=== PATIENT | male | born 1935 | race Caucasian/White ===

== ENCOUNTER → 2016-10-28 | Outpatient (CLI) | payer MEDICARE, SELFPAY ==
[~2016-10-28] MED LIST: CIPRO500 MG PO; COUMADIN 2.5MG2.5 MG PO; COUMADIN 5MG TAB5 MG PO; FLAGYL500 MG PO; GLUCOPHAGE 500500 MG PO; LOSARTAN POTASS25 MG PO; NITROSTAT 0.40.4 MG SL
== END ==
LOC: US 14:51
DX: I73.9 Peripheral vascular disease, unspecified (principal); I48.91 Unspecified atrial fibrillation
CPT/HCPCS: 93925

== ENCOUNTER → 2016-11-30 | Outpatient (CLI) | payer MEDICARE, OTHER | LOC: HEART 5 08:48 | DX: I73.9 Peripheral vascular disease, unspecified (principal); I48.91 Unspecified atrial fibrillation; R06.02 Shortness of breath | CPT/HCPCS: 94010 ==

== ENCOUNTER 2020-08-14 09:56 | Inpatient (IN) | payer MEDICARE ==
[~2020-08-14] VITALS: Ht 165.1 cm; Wt 91.3 kg
[~2020-08-14 09:56] MED LIST changes: +ACETAMINOPHEN500 MG PO; +AMLODIPINE BESYL5 MG PO; -COUMADIN 2.5MG2.5 MG PO; +LO-DOSE ASPIRIN81 MG PO; +NORCO 5-325 TA1 EACH PO; +NORVASC10 MG PO; +PREDNISONE 50 M50 MG PO; +TESSALON PERLE100 MG PO; +WARFARIN SODIU2.5 MG PO; +WARFARIN SODIUM5 MG PO
[2020-08-14 10:39] LABS: HEMOGLOBIN 11.3 gm/dl (14.0-17.5); RED BLOOD COUNT 3.6 M/UL (4.20-5.50); WHITE BLOOD COUNT 13.2 K/UL (4.5-11.0)
[2020-08-14] MEDS ORDERED: JANTOVEN1 MG PO ×2 (13:19)
[2020-08-14] MEDS ORDERED: TIZANIDINE HCL2 M1 PO (13:20)
[2020-08-14] MEDS ORDERED: TYLENOL 500 MG500 MG PO (13:21)
[2020-08-14] MEDS ORDERED: ASPIRIN EC81 MG PO (13:21)
[2020-08-15 01:41] LABS: HEMOGLOBIN 10.5 gm/dl (14.0-17.5); RED BLOOD COUNT 3.35 M/UL (4.20-5.50); WHITE BLOOD COUNT 13.6 K/UL (4.5-11.0)
[2020-08-15 09:36] LABS: ACINETOBACTER BAUMANNII Not Detected (Negative); CANDIDA ALBICANS Not Detected (Negative); CANDIDA KRUSEI Not Detected (Negative); CANDIDA TROPICALIS Not Detected (Negative); ENTEROCOCCUS Not Detected (Negative); ESCHERICHIA COLI Not Detected (Negative); HAEMOPHILUS INFLUENZAE Not Detected (Negative); KLEBSIELLA OXYTOCA Not Detected (Negative); KLEBSIELLA PNEUMONIAE Not Detected (Negative); KPC-CARBAPENEM-RESISTANCE GENE Not Detected (Negative); PROTEUS Not Detected (Negative); PSEUDOMONAS AERUGINOSA Not Detected (Negative); SERRATIA MARCESANS Not Detected (Negative); STAPHYLOCOCCUS AUREUS Not Detected (Negative); STREP AGALACTIAE (GROUP B) Not Detected (Negative); STREP PYOGENES (GROUP A) Not Detected (Negative); STREPTOCOCCUS Not Detected (Negative); mecA (METHICILLIN RESIST GENE Not Detected (Negative); vanA/B (VANCOMYCIN RESIST GENE Not Detected (Negative)
--- NOTE | 2020-08-15 12:45 | NUR ---
PT ROOM AIR O2 SATURATION WAS 87%
[2020-08-15 13:35] LABS: STAPHYLOCOCCUS DETECTED (Negative)
[2020-08-16 04:00] LABS: HEMOGLOBIN 10.5 gm/dl (14.0-17.5); RED BLOOD COUNT 3.34 M/UL (4.20-5.50); WHITE BLOOD COUNT 13.3 K/UL (4.5-11.0)
[2020-08-17 05:40] LABS: HEMOGLOBIN 10.1 gm/dl (14.0-17.5); RED BLOOD COUNT 3.21 M/UL (4.20-5.50); WHITE BLOOD COUNT 12.4 K/UL (4.5-11.0)
[2020-08-18 04:45] LABS: RED BLOOD COUNT 3.18 M/UL (4.20-5.50); WHITE BLOOD COUNT 12.5 K/UL (4.5-11.0)
[2020-08-19 07:12] LABS: HEMOGLOBIN 10.2 gm/dl (14.0-17.5); RED BLOOD COUNT 3.25 M/UL (4.20-5.50); WHITE BLOOD COUNT 15.4 K/UL (4.5-11.0)
== END 2020-08-19 12:35 | disposition expired | DRG 291 ==
LOC: ER1 09:56 → ZEROF 12:31 → M/S 12:31
PROVIDERS: Emergency Medicine; Physician Assistant Medical; ADMIT Internal Medicine
PROC: B24BZZ4 Ultrasonography of Heart with Aorta, Transesophageal (ICD-10-PCS; principal; 2020-08-14)
PROC: 5A12012 Performance of Cardiac Output, Single, Manual (ICD-10-PCS; 2020-08-19)
PROC: 0BH17EZ Insertion of Endotracheal Airway into Trachea, Via Natural or Artificial Opening (ICD-10-PCS; 2020-08-19)
DX: I13.0 Hypertensive heart and chronic kidney disease with heart failure and stage 1 through stage 4 chronic kidney disease, or unspecified chronic kidney disease (principal); J96.01 Acute respiratory failure with hypoxia; I50.43 Acute on chronic combined systolic (congestive) and diastolic (congestive) heart failure; N17.9 Acute kidney failure, unspecified; E87.1 Hypo-osmolality and hyponatremia; I25.10 Atherosclerotic heart disease of native coronary artery without angina pectoris; Z95.1 Presence of aortocoronary bypass graft; E11.22 Type 2 diabetes mellitus with diabetic chronic kidney disease; N18.30 Chronic kidney disease, stage 3 unspecified; Z79.01 Long term (current) use of anticoagulants; Z79.82 Long term (current) use of aspirin; Z79.899 Other long term (current) drug therapy; Z82.49 Family history of ischemic heart disease and other diseases of the circulatory system; Z88.8 Allergy status to other drugs, medicaments and biological substances; Z91.018 Allergy to other foods; I48.0 Paroxysmal atrial fibrillation; I49.5 Sick sinus syndrome; I95.9 Hypotension, unspecified; E87.6 Hypokalemia; R79.1 Abnormal coagulation profile; I46.9 Cardiac arrest, cause unspecified; Z95.0 Presence of cardiac pacemaker; D64.9 Anemia, unspecified; J40 Bronchitis, not specified as acute or chronic; Z20.822 Contact with and (suspected) exposure to COVID-19; Z95.5 Presence of coronary angioplasty implant and graft
CPT/HCPCS: ECHO; 36415; 36600; 71045; 71046; 80048; 80053; 81001; 82550; 82553; 82565; 82803; 82962; 83605; 83735; 83874; 83880; 84484; 85025; 85027; 85610; 87040; 87077; 87150; 87186; 93005; 93306; 94640; 94664; 94760; 96365; 96366; 96367; 96376; 97162; 99285; J0171; J0282; J0461; J0696; J1940; J7030; P9047; U0002